=== PATIENT | female | born 1975 | race Two or more races ===

== ENCOUNTER 2019-03-02 16:07 | Outpatient (CLI) | payer OTHER ==
--- NOTE | 2019-03-02 16:32 | RAD ---
Left elbow 4 views HISTORY: Left elbow pain. FINDINGS: Radiocapitellar alignment is maintained. Mild joint space narrowing and osteophytosis. No a cute fracture, dislocation, or fluid distention of the joint capsule evident. IMPRESSION: Very mild osteoarthritic changes. No acute osseous abnormalities are demonstrated.
== END 2019-03-02 16:08 | disposition home or self-care (01) ==
LOC: NAV RAD 16:07
PROVIDERS: ATTEND Nurse Practitioner Adult Health
DX: M25.522 Pain in left elbow (principal); M19.022 Primary osteoarthritis, left elbow